=== PATIENT | male | born 1960 | race Caucasian/White ===

== ENCOUNTER 2023-03-13 02:13 | Emergency (ER) | payer OTHER ==
[2023-03-13 03:25] LABS: BASOPHILS ABSOLUTE AUTO 0.1 K/mm3 (0.0-0.2); BASOPHILS PERCENT AUTO 0.7 % (0.0-1.0); EOSINOPHILS ABSOLUTE AUTO 0.2 K/mm3 (0.0-0.4); HEMATOCRIT 48.6 % (42.0-52.0); HEMOGLOBIN 16.5 gm/dl (14.0-18.0); IMMATURE GRAN ABSOLUTE AUTO 0.01 K/mm3 (0.00-0.05); IMMATURE GRAN PERCENT AUTO 0.1 % (0.0-0.4); LYMPHOCYTES ABSOLUTE AUTO 1.3 K/mm3 (1.0-4.8); LYMPHOCYTES PERCENT AUTO 17.8 % (24.0-44.0); MEAN CORPUSCULAR HEMOGLOBIN 26.8 pg (28.0-32.0); MEAN CORPUSCULAR VOLUME 78.9 fl (83.0-99.0); MEAN PLATELET VOLUME 10.8 fl (9.4-12.4); MONOCYTES ABSOLUTE AUTO 0.5 K/mm3 (0.0-0.8); MONOCYTES PERCENT AUTO 6.4 % (0.0-8.0); NEUTROPHILS ABSOLUTE AUTO 5.4 K/mm3 (1.8-7.7); PLATELET COUNT,PLT 197 K/mm3 (150-400); RED BLOOD CELL COUNT 6.16 M/mm3 (4.52-5.90); WHITE BLOOD CELL COUNT,WBC 7.35 K/mm3 (3.9-11.3)
[2023-03-13 03:35] LABS: INR 1.07; PROTHROMBIN TIME 11.4 SECONDS (9.7-12.0)
[2023-03-13 03:37] LABS: PTT,PARTIAL THROMBOPLSTIN TIME 26.7 SECONDS (21.7-31.4)
[2023-03-13 03:39] LABS: D-DIMER QUANTITATIVE 0.61 mg/L (0.19-0.50)
[2023-03-13 03:53] LABS: A/G RATIO 1.4 (1-2); ALBUMIN 3.7 g/dl (3.4-5.0); ANION GAP 17.8 (5-15); BILIRUBIN TOTAL 1.3 mg/dL (0.2-1.0); BUN/CREATININE RATIO 19.3 (14-18); CALCIUM 8.9 mg/dL (8.5-10.1); CREATININE 1.5 mg/dL (0.7-1.3); EST CRCL DRUG DOSING (CG) 49.4 mL/min; POTASSIUM,K 3.8 mEq/L (3.5-5.1); PROTEIN TOTAL,TP 6.4 g/dl (6.4-8.2)
[2023-03-13] MEDS ORDERED: Iopamidol 755 Mg/ML 100 ML Bottle IVPUSH ONE (04:41)
[2023-03-13] MEDS ORDERED: Doxycycline Monohydrate 100 MG Cap PO ONE (05:37)
[2023-03-13] MEDS ORDERED: Losartan 25 MG Tab PO ONE (05:38)
== END 2023-03-13 06:00 | disposition home or self-care (01) ==
LOC: JD.ED 02:13
DX: J18.9 Pneumonia, unspecified organism (principal); I11.0 Hypertensive heart disease with heart failure; I50.9 Heart failure, unspecified; Z20.822 Contact with and (suspected) exposure to COVID-19; Z79.899 Other long term (current) drug therapy
CPT/HCPCS: 36415; 71046; 71275; 80053; 83735; 83880; 84484; 85025; 85379; 85610; 85730; 87635; 99285; A9270; Q9967; 93010; 99284; U0002